=== PATIENT | male | born 1960 | race Caucasian/White ===

== ENCOUNTER 2022-02-22 13:32 | Emergency (ER) | payer OTHER ==
[~2022-02-22] VITALS: Ht 177.8 cm; Wt 81.7 kg
[~2022-02-22 13:32] MED LIST: HYDACE5 PO; RXHYDACE PO
[2022-02-22] MEDS ORDERED: Norco 5-325 Ta1 EACH PO (15:14)
== END 2022-02-22 15:21 | disposition home or self-care (01) ==
LOC: ER 13:32
DX: S42.021A Displaced fracture of shaft of right clavicle, initial encounter for closed fracture (principal); W17.89XA Other fall from one level to another, initial encounter
CPT/HCPCS: 73030; A9270